=== PATIENT | male | born 1960 ===

== ENCOUNTER 2017-11-01 08:34 | Day surgery (SDC) | payer MEDICAID, OTHER ==
[2017-10-24 08:42] VITALS: BMI 26.4
[2017-11-01] MEDS ORDERED: Lidocaine 1% Inj (20ml) ONE (10:54)
[2017-11-01] MEDS ORDERED: Propofol 10 mg/ml Inj (20 ML) ONE (10:54)
[2017-11-01] MEDS ORDERED: cefTRIAXone (Rocephin) 1 gm Inj ONE (11:12)
[2017-11-01] MEDS ORDERED: ePHEDrine 50 mg/ml Inj ONE (11:22)
[2017-11-01] MEDS ORDERED: HYDROmorphone 0.5 mg/0.5 ml ISec IVP PRN (12:03)
[2017-11-01] MEDS ORDERED: HYDROmorphone 0.5 mg/0.5 ml ISec ONE (13:25)
[2017-11-01] MEDS: ceFAZolin 1 gm in NS 1 GM/100 ML BAG IVPB SCH ×2 (15:35→21:49)
[2017-11-01] MEDS ORDERED: Pneumococcal 23-Valent Vaccine IM ONE (22:49)
[2017-11-02] MEDS: ceFAZolin 1 gm in NS 1 GM/100 ML BAG IVPB SCH ×2 (06:19→14:00)
[2017-11-02 08:12] VITALS: RESP 20; TEMP 98.7
[2017-11-02] MEDS ORDERED: cefTRIAXone 1 gm 1 GM/100 ML BAG IVPB STA (09:23)
[2017-11-02] MEDS ORDERED: OXYBUTYNIN CHLORIDE PO SCH (10:00)
[2017-11-02] MEDS ORDERED: OXYBUTYNIN CHLORIDE 15 MG PO SCH (10:00)
--- NOTE | 2017-11-02 17:37 | PCM.URO ---
Urology Progress Note - Objective Lab Studies: Reviewed (discharge henderson and discharge home) Intake & Output: Intake & Output 11/01/17 11/02/17 11/02/17 18:59 06:59 18:59 Intake Total 2500 1200 480 Output Total 5000 4500 Balance -2500 -3300 480 Weight 149 lb Intake: Oral 1200 480 Other 2500 Output: Urine 5000 4500 2-way Urethral 2500 4500 Other: Voiding Method 3-way Henderson with CBI # Bowel Movements 0 Vital Signs: Vital Signs - 24 hr 11/01/17 11/02/17 22:23 06:00 Temperature 97.9 F 98.7 F Pulse Rate 85 80 Respiratory 16 20 Rate Blood Pressure 146/80 104/68 O2 Sat by Pulse 100 Oximetry
[2017-11-02 18:31] VITALS: BP 101/73; PULSE 86; O2SAT 96
--- NOTE | 2017-11-12 21:24 | DS ---
HISTORY OF PRESENT ILLNESS: See history and physical, see operative note, and see postop note. Patient remained stable. . Patient discharged home in stable condition. Vital signs are within normal limits as listed in the chart. Patient will be discharged home with antibiotics, analgesics, and stool softeners. We discussed with the patient various options, doing well and stable. FINAL DIAGNOSES: . At this point, patient was discharged home in stable condition, having tolerated the procedure well. Ata Drake MD
--- NOTE | 2017-11-13 06:55 | OP ---
PROCEDURE DATE: 11/01/2017 UROLOGY OPERATIVE REPORT PREOPERATIVE DIAGNOSES: Voiding dysfunction, irritative and obstructive voiding complaints, urinary retention, and mixed neurogenic bladder. POSTOPERATIVE DIAGNOSES: Voiding dysfunction, irritative and obstructive voiding complaints, urinary retention, and mixed neurogenic bladder. PROCEDURE: Photovaporization of the prostate with GreenLight laser energy, transurethral resection of the prostate. SURGEON: . BLOOD LOSS: Less than 25 mL. COMPLICATIONS: There were no complications. INDICATIONS: See history and physical for further details. A very pleasant gentleman with voiding dysfunction here for the above procedure. Risks, benefits, and treatment alternatives, the benefits and risk were both discussed at great length. The risk of surgery not working, which would making things worse, the benefits are voiding with a better flow and less abdominal pain and less irritative obstructive stream, all discussed at length. The expectation of more fluid with ejaculation, although right now this is not so relevant for him. See the many progress notes in the office and some social history. UROLOGY OPERATING FINDINGS: Normal anterior urethra. No strictures. Verumontanum is visually occlusive . I should also mention that [place] anatomy is noted and a little disrupted from previous intervention. See previous progress notes. The ureteral orifice, the trilobar hypertrophy is noted. So, basically, the patient has trilobar hypertrophy, the visually occlusive prostate. No other lesions were noted and no termination of the procedure, . All anatomy is identified and well taken care. DESCRIPTION OF PROCEDURE: After obtaining informed consent, the patient was placed on the table. Routine monitors were placed. Time-out was called. Consent was obtained with translation. Patient was provided antibiotic prophylaxis. Time-out was called to confirm the patient. Patient is in lithotomy position. We have arranged for the [employer] to be here. Patient prepped in usual sterile fashion in lithotomy position. We introduced the scope with the visual obturator and we identified all landmarks. Next by the veru, we identified the ureteral orifice. We then identified trilobar hypertrophy. visually occlusive. change. There are no other abnormalities appreciated. No bladder lesions. obturator. We started at 80 watt of energy and worked our way up to 120 to 140. We through 5 and 7 and at the bladder neck and then we worked our way eventually to 7 to 11, 5 to 1. Then eventually, we did identifying all anatomy. Finally, worked our way gently towards the verumontanum. . We subsequently achieved hemostasis using coag as needed. At the termination, nicely open. We at the verumontanum. Multiple pictures were taken and saved and placed in the chart. irrigation. Made sure that everything was dry, no bleeding. We inserted the Bruner catheter via the urethra. There were no complications. We placed the catheter on traction. Overall, the patient tolerated the above without untoward effects. The patient tolerated we placed him on traction, we put a CBI. See the addendum to this note. Patient tolerated without complication. ADDENDUM: We are going to actually admit the patient and keep him on CBI to make sure there is no bleeding. and encourage the patient to stay in the hospital overnight while we monitor him closely after the procedure. Ata Drake MD
--- NOTE | 2017-11-13 09:07 | HP ---
DATE OF EXAM: 11/01/2017 Admission is for treatment of voiding dysfunction, neurogenic bladder and urinary retention. HISTORY OF PRESENT ILLNESS: Mr. Miles Griffith is very pleasant gentleman, he had multiple issues, had a stroke apparently. The patient is currently being admitted today to the Same Day Surgery Unit with a possible hospital 24 hours stay for an undergo a photovaporization GreenLight laser energy, TURP. PAST MEDICAL HISTORY AND SURGICAL HISTORY: Are as follows, he had underlying hypertension of an MT. MEDICATIONS: See the chart. ALLERGIES: . REVIEW OF SYSTEMS: Surgical history as noted. . PHYSICAL EXAMINATION: GENERAL: A well-nourished male in no apparent distress. VITAL SIGNS: Within normal limits and listed in the chart. LUNGS: Clear. HEART: S1, S2. ABDOMEN: Overall, soft. Nontender. GENITOURINARY: Normal phallus without discharge. No testicular masses. RECTAL: A 30 g prostate, soft and smooth. NEUROLOGICAL: As noted for stroke. LABORATORY DATA: See chart. IMAGING: See chart. DIAGNOSES: Urinary retention, voiding dysfunction, irritative and obstructive urinary complaints, problems with neurogenic bladder. We discussed other workup. We discussed minimally invasive treatment with . We tried to discuss all the treatment medications obstructed. history of stroke bladder contraction incontinence. We did discuss this with the patient at length. obstructive in nature. PLAN: So the plan for today is as follows: 1. PVP GreenLight laser . 2. We are going to plan antibiotic prophylaxis. 3. We will now plan for PVP GreenLight laser, TURP and further plans will follow depending on how the patient does clinically. hospital depending on the situation. addendum, see the operative note he ended up needing 1. 24 hours today in the hospital 2. We are going to plan for a PVP GreenLight laser TURP. 3. We are going to plan for antibiotic prophylaxis. 4. Further plan will follow. Ata Drake MD [facility] # [id number]
--- NOTE | 2017-11-13 09:21 | PN ---
DATE: 11/01/2017 IMMEDIATE POSTOPERATIVE NOTE PREOPERATIVE DIAGNOSES: Urinary retention, hematuria, irritative and obstructive urinary complaints and urinary retention. POSTOPERATIVE DIAGNOSES: Urinary retention, hematuria, and irritative and obstructive urinary complaints and urinary retention. . Vital signs are noted to be within normal limits. Bruner catheter is in place, draining essentially clear urine. See the progress notes and the operative notes. There were no complications. Vital signs are stable. When examining the patient, although the patient has an indwelling Bruner catheter, we are going to actually admit the patient and observe him for a length of time, keep him on CBI and further observation and do a 24-hour stay. Ata Drake MD
== END 2017-11-02 18:35 | disposition home or self-care (01) ==
LOC: SDS 08:34 → 5RNO 14:13 → SDS 11-02 14:40
PROVIDERS: ATTEND Urology
DX: N40.1 Benign prostatic hyperplasia with lower urinary tract symptoms (principal); R33.8 Other retention of urine; N31.8 Other neuromuscular dysfunction of bladder
CPT/HCPCS: 52648; J0690 ×2; J0696; J1170; J2405; J2704; J2765; J3010; J7120

== ENCOUNTER 2017-11-27 07:38 | Observation (INO) | payer MEDICAID, OTHER ==
[2017-11-27 07:43] VITALS: BMI 24.2
--- NOTE | 2017-11-27 07:47 | ED PDOC ---
Arrival/HPI - General Chief Complaint: Weakness/Neurological Deficit Time Seen by Provider: 11/27/17 07:40 Historian: Patient - History of Present Illness Narrative History of Present Illness (Text): 11/27/17 07:54 Patient is a 57 yo male, past medical history of stroke "5 years ago" with history of left sided deficits, presents to the Emergency Department from a [facility] bus with history of "feeling dizzy before I got on the bus" and "feeling some discomfort in my left arm it feels a little different". States symptoms started before he got on the bus. Denies headache. Denies chest pain or shortness of breath. Patient becomes tearful and states he has been having difficulty with family members over the past several days. Time/Duration: Prior to Arrival Symptom Onset: Sudden Past Medical History - Provider Review Nursing Documentation Reviewed: Yes - Infectious Disease Hx of Infectious Diseases: None - Tetanus Immunization Tetanus Immunization: Up to Date - Cardiac Hx Cardiac Disorders: Yes Hx Hypertension: Yes Hx Pacemaker: No - Pulmonary Hx Respiratory Disorders: Yes (USED TO SMOKE CIGARETTES QUIT) Hx Pneumonia: Yes - Neurological Hx Neurological Disorder: Yes (NEUROPATHY) HX Cerebrovascular Accident: Yes (left sided WEAKNESS) Hx Dizziness: Yes (DIZZINESS) Hx Seizures: Yes - HEENT Hx HEENT Disorder: No - Renal Hx Renal Disorder: Yes Hx Kidney Stones: Yes (X2) - Endocrine/Metabolic Hx Endocrine Disorders: No - Hematological/Oncological Hx Blood Disorders: No - Integumentary Hx Dermatological Disorder: No - Musculoskeletal/Rheumatological Hx Musculoskeletal Disorders: Yes Hx Falls: Yes Hx Unsteady Gait: Yes (CANE) - Gastrointestinal Hx Gastrointestinal Disorders: Yes (PEG IN/OUT) - Genitourinary/Gynecological Hx Genitourinary Disorders: Yes (URINARY FREQUENCY,RETENTION) Hx Prostate Problems: Yes (BPH) - Psychiatric Hx Emotional Abuse: No Hx Physical Abuse: No Hx Substance Use: No - Anesthesia Hx Anesthesia Reactions: No Hx Malignant Hyperthermia: No - Suicidal Assessment Feels Threatened In Home Enviroment: No Family/Social History - Physician Review Nursing Documentation Reviewed: Yes Family/Social History: Unknown Family HX Smoking Status: Former Smoker Hx Alcohol Use: Yes (H/O QUIT) Hx Substance Use: No Hx Substance Use Treatment: No Allergies/Home Meds Allergies/Adverse Reactions: Allergies No Known Allergies Allergy (Verified 11/01/17 20:22) Home Medications: Home Meds Medication Instructions Recorded Confirmed Aspirin [Ecotrin] 81 mg PO DAILY 10/24/17 10/24/17 Atorvastatin [Lipitor] 10 mg PO HS 10/24/17 10/24/17 Baclofen [Lioresal] 10 mg PO TID 10/24/17 10/24/17 Gabapentin [Neurontin] 100 mg PO HS 10/24/17 10/24/17 Levetiracetam [Roweepra] 500 mg PO BID 10/24/17 10/24/17 Losartan [Cozaar] 100 mg PO HS 10/24/17 10/24/17 Oxybutynin Chloride [Oxybutynin 15 mg PO DAILY 10/24/17 10/24/17 Chloride ER] Oxybutynin [Oxybutynin Chloride] 5 mg PO BID 10/24/17 10/24/17 PARoxetine [Paxil] 10 mg PO HS 10/24/17 10/24/17 Ranitidine HCl [Sunmark Acid 150 mg PO DAILY 10/24/17 10/24/17 Collet Driller] Tamsulosin [Flomax] 0.4 mg PO DAILY 10/24/17 10/24/17 Review of Systems - Review of Systems Systems not reviewed;Unavailable: Language Barrier (marine erector is present at bedside) Constitutional: absent: Fevers Eyes: absent: Vision Changes Respiratory: absent: SOB Cardiovascular: absent: Chest Pain, GOMEZ Gastrointestinal: absent: Abdominal Pain, Nausea Genitourinary Male: absent: Dysuria Musculoskeletal: absent: Back Pain Skin: absent: Rash Neurological: Dizziness, Focal Weakness (he has left sided arm and leg weakness but states he always has this). absent: Headache, Seizure Psychiatric: Anxiety, Depression Physical Exam - Physical Exam Narrative Physical Exam (Text): 11/27/17 Head: Atraumatic. Normocephalic. Eyes: PERRL. EOMI. Visual acuity and sesay at baseline. ENT: Mucous membranes are moist and intact. Oropharynx is clear and symmetric. No tongue deviation. No facial edema. Neck: Supple. Full ROM. No JVD. No lymphadenopathy. No meningeal signs. Cardiovascular: Regular rate. Regular rhythm. Systolic murmur noted. Pulmonary/Chest: No evidence of respiratory distress. Clear to auscultation bilaterally. No wheezing, rales or rhonchi. Abdominal: Soft and non-distended. There is no tenderness. No rebound, guarding, or rigidity. No organomegaly. Good bowel sounds. Back: No deformities. Nontender. Extremities: No edema. No cyanosis. No clubbing. Contracted left upper extremity. Skin: Skin is warm and dry. No petechiae. No purpura. Neurological: Alert, awake, and oriented to person, place, time, and situation. Left sided facial droop, patient states at baseline. Left upper and lower extremity weakness, patient states currently at baseline. Psychiatric: Tearful. Expresses depression and anxiety. Vital Signs Reviewed: Yes Vital Signs Temp Pulse Resp BP Pulse Ox 11/27/17 08:00 97.5 F L 77 18 139/92 H 97 Temperature: Afebrile Blood Pressure: Hypertensive Pulse: Regular Respiratory Rate: Normal Appearance: Positive for: Non-Toxic Pain Distress: None Mental Status: Positive for: Alert and Oriented X 3 Finger Stick Blood Glucose: 100 Medical Decision Making ED Course and Treatment: 11/27/17 Impression: Patient seen immediately upon arrival to [facility]. History obtained from patient via technical marketing consultant. He reports history of previous stroke 5 years ago. On exam he has left sided facial droop and left sided upper and lower extremity weakness. He felt that 13 minutes ago approximately it felt "different " although on initial exam he states weakness is now at his baseline. CODE stroke activated for potential acute onset of symptoms. Reviewed neurology consult from June, which documented prior weakness as well. On re-exam, he is comfortable and at baseline. Based on this history and exam, currently do not feel patient is a TPA candidate as symptoms likely baseline. Initial history and exam reviewed with neurologist Dr. Aguilar. Patient exhibits depression over family and is intermittently tearful. Differential Diagnosis included but are not limited to: acute stroke, residual stroke, depression, anxiety Plan: -- EKG -- CT head -- CXR -- Labs -- Reassess and disposition Prior Visits: Notes and results from previous visits were reviewed. Patient was last seen in the emergency department on Progress Notes: 11/27/17 08:[address]: Impression: No acute finding. 11/27/17 09:49 Patient on re-exam with no change from initial exam, and remains at his baseline status neurologically. By patient's request I communicated with his daughter via phone, who also states his weakness has been there previously. I communicated with his PMD DR. Mateo Chaves, who knows patient, and has examined patient in ED, also feels currently patient is at his baseline, thus NOT a tpa candidate. Will admit to telemetry observation for history of weakness, history of cva. - Lab Interpretations Lab Results: 11/27/17 07:47 11/27/17 07:47 Lab Results 11/27/17 08:00: Alcohol, Quantitative < 10 11/27/17 08:00: Salicylates < 1 L, Acetaminophen < 10.0 L 11/27/17 07:47: Blood Type O POSITIVE, Antibody Screen Negative, BBK History Checked No verified bt 11/27/17 07:47: Sodium 141, Potassium 3.9, Chloride 103, Carbon Dioxide 25, Anion Gap 17, BUN 18, Creatinine 0.9, Est GFR ( Amer) > 60, Est GFR (Non- Af Amer) > 60, Random Glucose 105, Calcium 8.9, Total Bilirubin 0.5, AST 50, ALT 87 H, Alkaline Phosphatase 115, Troponin I < 0.01 D, Total Protein 7.9, Albumin 4.3, Globulin 3.5, Albumin/Globulin Ratio 1.2, Triglycerides 83, Cholesterol 116 L, LDL Cholesterol Direct 45, HDL Cholesterol 51 11/27/17 07:47: PT 11.7, INR 1.02, APTT 30.4 11/27/17 07:47: WBC 8.7 D, RBC 4.82, Hgb 15.4, Hct 44.9, MCV 93.2, MCH 32.0, MCHC 34.3, RDW 12.9, Plt Count 232, MPV 10.4, Gran % 66.8, Lymph % (Auto) 24.8, Towns % (Auto) 4.5, Eos % (Auto) 3.7, Baso % (Auto) 0.2, Gran # 5.80, Lymph # ( Auto) 2.2, Towns # (Auto) 0.4, Eos # (Auto) 0.3, Baso # (Auto) 0.02 I have reviewed the lab results: Yes - RAD Interpretation Radiology Orders: 11/27/17 07:44 HEAD W/O (CODE STROKE) [CT] Stat CHEST PORTABLE [RAD] Stat Foreign Correspondent: Radiologist - EKG Interpretation EKG Interpretation (Text): 11/27/17 08:11 EKG at 0802 normal sinus rhythm rate of [address] elevations Interpreted by ED Physician: Yes Type: 12 lead EKG - Medication Orders Current Medication Orders: Aspirin (Ecotrin) 81 mg PO DAILY OZZIE Atorvastatin Calcium (Lipitor) 10 mg PO HS OZZIE Baclofen (Lioresal) 10 mg PO TID OZZIE Famotidine (Pepcid) 150 mg PO BID OZZIE Gabapentin (Neurontin) 100 mg PO HS OZZIE PRN Reason: Protocol Levetiracetam (Keppra) 500 mg PO BID OZZIE Losartan Potassium (Cozaar) 100 mg PO HS OZZIE Oxybutynin Chloride (Ditropan Tab) 5 mg PO BID OZZIE Paroxetine HCl (Paxil) 10 mg PO HS OZZIE Tamsulosin HCl (Flomax) 0.4 mg PO DAILY OZZIE Discontinued Medications Aspirin (Aspirin Chewable) 81 mg PO STAT STA Stop: 11/27/17 08:49 Last Admin: 11/27/17 09:09 Dose: 81 mg NIHSS Scale ([place]) Time Performed: 07:50 - How Severe is the Stoke Baseline Level of Consciousness: 0=Alert LOC to Questions: 0=Both comments correct LOC to commands: 0=Obeys both correctly Best Gaze: 0=Normal Visual: 0=No visual loss Facial: 2=Partial (lower face paralysis) Motor Arm - Left: 2=Falls before 10 sec Motor Arm - Right: 0=No drift Motor Leg - Left: 2=Falls before 5 sec Motor Leg - Right: 0=No drift Limb Ataxia: 0=Absent Sensory: 0=Normal Best Language: 0=No aphasia Dysarthia: 0=Normal articulation Extinction & Inattention (Neglect): 0=Normal, no object Score: 6 Risk Level: Mod Stroke Risk rTPA Inclusion/Exclusion - Refusal of Treatment Patient Refused Treatment: Yes - Warning to TPA With Conditions Following Conditions Weighed Against Anticipated Benefit: Yes Condition: Stroke Serevity Too Mild (patient's symptoms of weakness ARE AT HIS BASELINE CURRENLTY) - Scribe Statement The provider has reviewed the documentation as recorded by the Scribe Dianelys Cárdenas Provider Scribe Attestation: All medical record entries made by the Scribe were at my direction and personally dictated by me. I have reviewed the chart and agree that the record accurately reflects my personal performance of the history, physical exam, medical decision making, and the department course for this patient. I have also personally directed, reviewed, and agree with the discharge instructions and disposition. Disposition/Present on Arrival - Present on Arrival Any Indicators Present on Arrival: No History of DVT/PE: No History of Uncontrolled Diabetes: No Urinary Catheter: No History of Decub. Ulcer: No History Surgical Site Infection Following: None - Disposition Have Diagnosis and Disposition been Completed?: Yes Diagnosis: Dizziness, CVA (cerebral vascular accident) Disposition: HOSPITALIZED Disposition Time: 09:00 Patient Plan: Admission, Observation, Telemetry Condition: FAIR
[2017-11-27 08:03] LABS: BASO # 0.02 K/mm3 (0.0-2.0); BASO % 0.2 % (0.0-3.0); EOS # 0.3 (0.0-0.7); EOS % 3.7 % (1.5-5.0); GRAN # 5.8 (1.4-6.5); GRAN % 66.8 % (50.0-68.0); HEMOGLOBIN 15.4 g/dL (14.0-18.0); LYMPH # 2.2 (1.2-3.4); LYMPH % 24.8 % (22.0-35.0); MEAN CELL VOLUME 93.2 fl (80.0-105.0); MEAN CORPUSCULAR HGB CONC 34.3 g/dl (31.0-37.0); MEAN PLATELET VOLUME 10.4 fl (7.0-11.0); MONO # 0.4 (0.1-0.6); MONO % 4.5 % (1.0-6.0); RBC 4.82 10^6/uL (3.5-6.1); RED CELL DISTRIBUTION WIDTH 12.9 % (11.5-14.5); WHITE BLOOD COUNT 8.7 10^3/ul (4.5-11.0)
[2017-11-27 08:16] LABS: INR 1.02 (0.93-1.08); PARTIAL THROMBOPLASTIN TIME 30.4 Seconds (25.1-36.5); PROTHROMBIN TIME 11.7 SECONDS (9.4-12.5)
--- NOTE | 2017-11-27 08:18 | CT ---
PROCEDURE: CT HEAD WITHOUT CONTRAST. HISTORY: Code Stroke COMPARISON: 07/24/2016 TECHNIQUE: Axial computed tomography images were obtained through the head/brain without intravenous contrast. Radiation dose: Total exam DLP = 882 mGy-cm. This CT exam was performed using one or more of the following dose reduction techniques: Automated exposure control, adjustment of the mA and/or kV according to patient size, and/or use of iterative reconstruction technique. FINDINGS: HEMORRHAGE: No intracranial hemorrhage. BRAIN: There is a large area of cystic encephalomalacia in the right frontal and temporal lobe as well as the basal ganglia. There are no acute intracranial findings. VENTRICLES: Unremarkable. No hydrocephalus. CALVARIUM: Unremarkable. PARANASAL SINUSES: Unremarkable as visualized. No significant inflammatory changes. MASTOID AIR CELLS: Unremarkable as visualized. No inflammatory changes. OTHER FINDINGS: The findings were discussed with Dr. Alvarenga at 8:15 a.m. IMPRESSION: No acute findings
[2017-11-27 08:20] LABS: ALB/GLOB RATIO 1.2 (1.1-1.8); ALBUMIN 4.3 g/dL (3.0-4.8); ALT/SGPT 87 U/L (7-56); AST/SGOT 50 U/L (17-59); BLOOD UREA NITROGEN 18 mg/dL (7-21); CALCIUM 8.9 mg/dL (8.4-10.5); GFR AFRICAN-AMERICAN > 60; GFR NON-AFRICAN AMERICAN > 60; HDL CHOLESTEROL 51 mg/dL (29-60)
[2017-11-27 08:22] LABS: ACETAMINOPHEN < 10.0 ug/ml (10.0-20.0); SALICYLATE < 1 mg/dL (2.0-20.0)
[2017-11-27 08:31] LABS: TROPONIN I < 0.01 ng/mL
[2017-11-27 08:32] LABS: LDL CHOLESTEROL 45 mg/dL (0-129)
[2017-11-27 09:36] LABS: BARBITURATES, UR NEGATIVE (NEGATIVE); BENZODIAZEPINES, UR NEGATIVE (NEGATIVE); OPIATES, UR NEGATIVE (NEGATIVE); PHENCYCLIDINE, UR NEGATIVE (NEGATIVE)
--- NOTE | 2017-11-27 09:44 | RAD ---
HISTORY: Code Stroke COMPARISON: 10/24/2017 FINDINGS: LUNGS: No active pulmonary disease. PLEURA: No significant pleural effusion identified, no pneumothorax apparent. CARDIOVASCULAR: Normal. OSSEOUS STRUCTURES: No significant abnormalities. VISUALIZED UPPER ABDOMEN: Normal. OTHER FINDINGS: None. IMPRESSION: No active disease.
--- NOTE | 2017-11-27 13:56 | CARD ---
APPROVED REPORT EKG Measurement Heart [id number] <Conclusion> Normal sinus rhythm Normal ECG
[2017-11-27] MEDS ORDERED: Pneumococcal 23-Valent Vaccine IM ONE (14:25)
--- NOTE | 2017-11-27 15:13 | CT ---
PROCEDURE: CT Angiography of the neck with contrast HISTORY: CVA COMPARISON: None available. TECHNIQUE: Contiguous axial images of the neck were obtained from the level of the skull-base to the superior mediastinum in the arteriographic phase of enhancement. Coronal and sagittal reformats or also generated. IV contrast dose: 100 cc of Omni 350 Radiation Dose - DLP: 446 mGy-cm This CT exam was performed using one or more of the following dose reduction techniques: Automated exposure control, adjustment of the mA and/or kV according to patient size, and/or use of iterative reconstruction technique. FINDINGS: RIGHT CAROTID ARTERIES: Common Carotid Artery: Normal. Carotid Bifurcation: Normal. Internal Carotid Artery:Normal. External Carotid Artery (proximal branches): Normal. LEFT CAROTID ARTERIES: Common Carotid Artery: Normal. Carotid Bifurcation: Normal. Internal Carotid Artery:Normal. External Carotid Artery (proximal branches): Normal. VERTEBRAL ARTERIES: Right Vertebral Artery: Normal. Left Vertebral Artery: Normal. OTHER FINDINGS: None. IMPRESSION: Normal CT Angiography of the neck. CT Angiography of the Brain. HISTORY: CVA COMPARISON: None available. TECHNIQUE: CT angiography of the intracranial arteries was performed. Coronal and sagittal maximum intensity projection reformated images were generated. This CT exam was performed using one or more of the following dose reduction techniques: Automated exposure control, adjustment of the mA and/or kV according to patient size, and/or use of iterative reconstruction technique. FINDINGS: INTERNAL CEREBRAL ARTERIES: Unremarkable. The skull base, petrous, cavernous and supraclinoid segments are bilaterally widely patent. ANTERIOR CEREBRAL ARTERIES: Unremarkable. A1 and A2 segments are widely patent. Smaller distal branches unremarkable, as visualized. MIDDLE CEREBRAL ARTERIES: Unremarkable. M1 and M2 segments are widely patent. Perisylvian branches grossly symmetric. POSTERIOR CIRCULATION: Basilar Artery: Unremarkable. Distal Vertebral Arteries: Unremarkable. Posterior Cerebral Arteries: Unremarkable. Posterior Inferior Cerebellar Arteries: Unremarkable. ANEURYSM/ VASCULAR MALFORMATIONS: None. OTHER FINDINGS: There is a large area of encephalomalacia in the right hemisphere as noted on previous studies. IMPRESSION: Unremarkable CT Angiography of the Brain.
--- NOTE | 2017-11-27 17:22 | MRI ---
PROCEDURE: MRI BRAIN WITHOUT CONTRAST HISTORY: CVA COMPARISON: Noncontrast head CT from 11/27/2017 TECHNIQUE: Multiplanar, multisequence MR images of the brain were obtained without intravenous contrast enhancement. FINDINGS: HEMORRHAGE: None DWI: No evidence of an acute or early subacute infarction. BRAIN PARENCHYMA: There is cystic encephalomalacia and gliosis in the right temporal and frontal lobes as well as right basal ganglia with volume loss and ex vacuo dilatation of the right ventricle as well as well layering degeneration of the pyramidal tract. VENTRICLES: There is mild age advanced global parenchymal volume loss and proportionate enlargement of the ventricles and cortical sulci. CRANIUM: There is normal bone marrow signal pattern. ORBITS: Grossly unremarkable. PARANASAL SINUSES/MASTOIDS: Predominantly clear P VASCULAR SYSTEM: There is asymmetric narrowing of the right middle cerebral artery. There are normal signal voids in the remaining larger intracranial arteries. OTHER FINDINGS: None. IMPRESSION: 1. No acute intracranial abnormality. 2. Right frontal and temporal lobe as well as basal ganglia cystic encephalomalacia and gliosis, sequela of remote MCA territory infarction.
--- NOTE | 2017-11-27 18:25 | CON ---
DATE: 11/27/2017 NEUROLOGY CONSULTATION CHIEF COMPLAINT: Dizziness and worsening left-sided weakness. 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 b.i.d.; history of depression, on Paxil who presented with feeling dizzy in terms of lightheaded when getting on to the bus and had some mild discomfort in his spastic left arm and felt a little numb; therefore, he came to the hospital for further evaluation. His MRI of the brain showed no acute intracranial abnormality, just old cystic encephalomalacia in the right MCA territory, especially in the frontal and temporal lobe. No acute abnormalities. CT angio of the head and neck unremarkable for any proximal clots. Currently, he is doing much better. He had mildly elevated diastolic blood pressure, which is transient, currently is stable, doing well. PAST MEDICAL HISTORY: As above. SOCIAL HISTORY: No illicit drug use, smoking, or EtOH abuse. FAMILY HISTORY: Noncontributory. MEDICATIONS: Reviewed by nurses' reconciliation sheet. ALLERGIES: NO KNOWN DRUG ALLERGIES. LABORATORY DATA: Sodium is 141, potassium 3.9, chloride of 103, carbon dioxide of 25, BUN of 18, creatinine 0.9, random glucose of 105. A1c is 5.5. PHYSICAL EXAMINATION: VITAL SIGNS: Temperature 97.5, pulse rate of 68, blood pressure of 130/89, respiratory rate 19. GENERAL: The patient is sitting up in bed, in no acute distress. HEENT: Head is atraumatic and normocephalic. PERRLA. Extraocular muscles intact. NECK: Supple. No JVD. No adenopathy noted. LUNGS: Clear to auscultation. No adventitious sounds. HEART: S1, S2. Normal rate and rhythm. No murmurs, rubs, or gallops. ABDOMEN: Soft, nontender, and nondistended. Bowel sounds present. EXTREMITIES: No clubbing. No cyanosis. Peripheral pulses 2+ felt bilaterally. NEUROLOGIC: The patient is alert and oriented to person, place, month, and year. Speech is fluent without any errors. Mild dysarthria from prior CVA. Attention span, thought process slow. Cranial nerves II through XII are intact. Motor: Has left-sided spastic upper and lower extremity weakness from prior CVA and contracted left upper extremity. Right side is intact. Sensory: Light touch, pinprick, proprioception, and vibration are intact. DTRs are 2+ throughout, 1 at the ankles. Coordination: [id number]-st-[id number] intact. Gait is slightly wide based and with left hemiparetic gait, spastic in nature. ASSESSMENT: This is a 57-year-old man with history of hypertension, dyslipidemia, history of right middle cerebral artery territory infarct with residual left-sided spastic weakness with a left-sided spastic hemiparetic gait, neuropathy, poor balance, seizures from right middle cerebral artery territory infarct, on Keppra, had some dizziness and some left arm numbness. His dizziness could be likely secondary to underlying transient hypertensive urgency since he had elevated diastolic blood pressures and postural changes. RECOMMENDATIONS: At this time, would recommend, 1. Orthostatic vital signs. 2. MRI of the brain and CT angio of the head was reviewed and no acute abnormalities. 3. Continue with aspirin 81 mg and Lipitor 20 mg at bedtime for neuropathic relief. 4. Continue with Keppra 500 mg p.o. b.i.d. for seizure prophylaxis. 5. Slow reduction in diet and keep his systolic blood pressure between 130s to 140s and diastolic 70s to 80s. 6. Continue with his Paxil 10 mg p.o. at bedtime for his depression and can follow up with me as an outpatient. He is clinically stable. Jose Manuel Randhawa MD
--- NOTE | 2017-11-27 20:12 | HP ---
DATE OF EXAM: 11/27/2017 HISTORY OF PRESENT ILLNESS: I have known Miles for a while now. I have seen him in the office. He has a history of having a stroke five years ago. He is a 57-year-old man who felt he had left-sided deficits that were getting worse, feeling dizzy, and a weird feeling in the left arm. He felt different when he was on a bus. He also has some issues with family members and he is tearful today and he is not in good spirits overall, may be a little depressed. He has a history of hypertension, an old stroke with left-sided weakness, neuropathy, dizziness, seizures. He has had kidney stones. He has had falls and he uses a cane. He had a PEG that was placed and reversed. He had urinary frequency and retention. He has got BPH, hypertension in the family. He is a former smoker. He quit drinking alcohol. No drugs. ALLERGIES: NO KNOWN DRUG ALLERGIES. MEDICATIONS: He is on Ecotrin, Lipitor, Lioresal, Neurontin, 01:08, 01:45, 03:04, 03:20 , Cozaar, oxybutynin, Paxil, ranitidine, and Flomax. REVIEW OF SYSTEMS: He speaks Cameroonian, but he speaks also Romanian too. No acute vision or hearing changes. No apparent sore throat. He is tearful. No shortness of breath or cough. No chest pain or palpations. No dyspnea on exertion. No abdominal pain. No nausea, vomiting, constipation, diarrhea. No problems urinating. No back pain. No apparent rashes or ulcers. He is a little bit dizzy. Left arm felt numb with focal weakness, but he has had, not sure if it is new or worsening. To me, it looks the same. No headache or seizure. He is anxious, depressed, and tearful. PHYSICAL EXAMINATION: VITAL SIGNS: He has a 97.5 temperature, 77 pulse, 18 respiratory rate, 139/92 blood pressure, and 97% O2 sat on room air. HEENT: Head is atraumatic and normocephalic. Extraocular muscles are intact. Pupils are equal and reactive to light. Throat is moist. NECK: Supple. No lymphadenopathy appreciated. HEART: Regular rate. LUNGS: Decreased breath sounds, but clear to auscultation. ABDOMEN: Soft, nontender, positive bowel sounds. No guarding. No rebound. No CVA tenderness. EXTREMITIES: He has got no edema. The left upper extremity is contracted. He has got left-sided weakness secondary to the stroke. SKIN: Warm and dry. No apparent ulcers or rashes. NEUROLOGIC: He is alert and oriented. He is tearful. He has a situation with his family, he did not explain. Depression and anxiety. LABORATORY DATA: So, we had some tests done in the ER. CAT scan of the head was okay. He has 8.7 white count, 15.4 hemoglobin, 44.9 hematocrit, and 232 platelets. INR is 1.02. Sodium is 141, potassium is 3.9, BUN 18, creatinine 0.9, GFR is greater than 60, sugar is 105, calcium is 8.9. Total bilirubin is 0.5, AST is 50, ALT is 87, alkaline phosphatase 115. Troponin I is less than 0.01. Total protein is 7.9, albumin is 4.3, and globulin 3.5. Triglycerides 83, cholesterol is 116, LDL is 45, HDL is 61. He has Tylenol less than 10, alcohol less than 10. ASSESSMENT AND PLAN: Overall, he seems stable. He will be on observation. He will have a consult with Neurology, Psychiatry for care. We will watch him overnight, put him on his medications, and check his labs. He is on observation status. He is here for left-sided weakness, rule out cerebrovascular accident. CAT scan was negative. Donnie Chaves DO MTDD
[2017-11-28 06:25] VITALS: O2SAT 97
[2017-11-28 06:34] LABS: HEMOGLOBIN 14.4 g/dL (14.0-18.0); MEAN CELL VOLUME 91.5 fl (80.0-105.0); MEAN CORPUSCULAR HEMOGLOBIN 31.2 pg (25.0-35.0); MEAN CORPUSCULAR HGB CONC 34.1 g/dl (31.0-37.0); MEAN PLATELET VOLUME 10.5 fl (7.0-11.0); RBC 4.61 10^6/uL (3.5-6.1); RED CELL DISTRIBUTION WIDTH 12.7 % (11.5-14.5); WHITE BLOOD COUNT 6.6 10^3/ul (4.5-11.0)
[2017-11-28 06:39] LABS: ALB/GLOB RATIO 1.1 (1.1-1.8); ALBUMIN 3.7 g/dL (3.0-4.8); ALT/SGPT 73 U/L (7-56); AST/SGOT 36 U/L (17-59); BLOOD UREA NITROGEN 13 mg/dL (7-21); CALCIUM 8.7 mg/dL (8.4-10.5); GFR AFRICAN-AMERICAN > 60; GFR NON-AFRICAN AMERICAN > 60
[2017-11-28] MEDS ORDERED: Potassium Chloride 20 mEq ER Tab PO ONE (07:37)
[2017-11-28 18:21] VITALS: BP 120/85; PULSE 81; RESP 17; TEMP 98.5
--- NOTE | 2017-11-29 02:21 | CON ---
DATE: 11/28/2017 HISTORY OF PRESENT ILLNESS: The patient is a 57-year-old male with a history of stroke. The patient was admitted on the medical side for evaluation of feeling of dizziness. The patient presented to be depressed and hopeless, and that is why this leader writer was involved into the patient care. As per the patient, he feels lonely because his left him. Also, his daughter is joining [employer]. The patient said that he came to the [place] to be with the family. Right now he lost everything. He cannot function; feeling hopeless, helpless. At times he has suicidal ideation; no plan. The patient reported that he has poor appetite and sleep. He feels hopeless, helpless, worthless and guilty. As per staff, the patient is very tearful, anxious, needs constant reassurance. The patient denied any psychotic symptoms and none were elicited. The patient reported that he was seen by psychiatrist, Dr. Palomino at [facility], and he is taking Paxil. The patient also is attending day treatment program. The patient's vital signs seems to be stable. Temperature 98.4, pulse is 106, blood pressure 112/76, respirations 21. The patient has a lot of medical issues, status post stroke with left-sided deficit. Medications reviewed. Patient is willing to change his Paxil to amitriptyline because this is a good medication for depression secondary to stroke. Risks, benefits and alternatives discussed with the patient. Labs reviewed. Urine drug screen negative for any substances. MENTAL STATUS EXAM: The patient presented to be alert, tearful, and depressed. The patient reported that he feels hopeless and helpless. Poor eye contact. Speech was underproductive. Thought process coherent and goal directed. Thought content; passive wish to be , feeling of hopelessness and helplessness. Insight and judgment seems to be limited. Impulses are well-controlled. IMPRESSION: Rule out major depressive disorder, rule out depression due to general medical condition. The patient has had stroke. PLAN: Continue current management. Continue current medications. Amitriptyline will be started. The patient will be continued on Keppra, Neurontin. Paxil will be discontinued. The patient will be seen by medical team. The patient is willing to sign in, and will be admitted voluntary to the psychiatric inpatient unit. Thank you very much for letting me participate in care of your patient. Selma Delgado MD
--- NOTE | 2017-11-29 08:08 | DS ---
HISTORY OF PRESENT ILLNESS: He came in with possible left CVA and very very depressed. He is doing fine this morning. He tells me he is back to his old self, the feelings have left him, and he wants to go to the psych floor to get better with his depression. He is on aspirin, Cozaar, Ditropan, Ecotrin, Flomax, potassium replacement, Keppra, baclofen, Lipitor, Neurontin, Paxil. He might need a higher dose or change as per [facility]. PHYSICAL EXAMINATION: VITAL SIGNS: His vital signs are 98.1 temperature, 88 pulse, 116/85 blood pressure, 20 respiratory rate, 97% O2 sat on room air. HEENT: Head is atraumatic, normocephalic. Heart regular rate. LUNGS: Decreased breath sounds, but clear. ABDOMEN: Soft. EXTREMITIES: No weakness in the left side secondary to an old stroke. LABORATORY DATA: He has a 6.6 white count, 14.4 hemoglobin, 42.2 hematocrit with a 224 platelets. He has a 140 sodium, potassium 3.5, I gave him potassium this morning. BUN 13, creatinine 0.8, GFR greater than 60, sugar is 95, calcium is 8.7, total bili is 0.6. AST is 36, ALT is 73, alk phos 97. Troponin I is less than 0.01, total protein 7.1, albumin is 3.7. Toxicology was negative. ASSESSMENT AND PLAN: He is a very nice man. He is very depressed. He is having issues at home. He had multiple tests of the brain and neck, and Neurology ruled that out. I am hoping he will be transferred to today. He told me he is willing to go. I left a message with the psychiatrist on-call to psych floor. The patient is very depressed. Donnie Chaves DO
== END 2017-11-28 19:01 ==
LOC: ED 07:38 → ERH 08:49 → 2RNO 10:14
PROVIDERS: ADMIT Family Medicine; ATTEND Family Medicine
DX: I16.0 Hypertensive urgency (principal); R42 Dizziness and giddiness; F32.9 Major depressive disorder, single episode, unspecified; I10 Essential (primary) hypertension; I69.354 Hemiplegia and hemiparesis following cerebral infarction affecting left non-dominant side; R56.9 Unspecified convulsions; E78.5 Hyperlipidemia, unspecified; G62.9 Polyneuropathy, unspecified; N40.1 Benign prostatic hyperplasia with lower urinary tract symptoms; R35.0 Frequency of micturition; R33.8 Other retention of urine; Z87.891 Personal history of nicotine dependence; Z79.82 Long term (current) use of aspirin; Z87.01 Personal history of pneumonia (recurrent); Z82.49 Family history of ischemic heart disease and other diseases of the circulatory system; Z87.442 Personal history of urinary calculi
CPT/HCPCS: 36415; 70450; 70496; 70498; 70551; 71045; 80053; 80061; 80320; 80324; 80329; 80345; 80346; 80349; 80353; 80358; 80361; 83036; 83992; 84484; 85025; 85027; 85610; 85730; 86850; 86900; 93005; 97116; 97161; 97530; 99285; G0378; G8978; G8979; G8980; Q9967

== ENCOUNTER 2017-11-28 18:53 | Inpatient (IN) | payer MEDICAID, OTHER ==
[2017-11-27 07:43] VITALS: BMI 24.2
[2017-11-28] MEDS ORDERED: Alum-Mag Hydrox-Simethicone Susp (30 mL) PO PRN (20:26)
[2017-11-28] MEDS ORDERED: Magnesium Hydroxide Susp 30 ml UD PO PRN (20:26)
[2017-11-28 20:35] VITALS: RESP 20
--- NOTE | 2017-11-28 23:43 | PCM.BM ---
<Monica Diaz - Last Filed: 11/28/17 23:40> Treatment Plan Problems - Problems identified on initial assessmt INEFFECTIVE COPING Date Initiated: 11/28/17 Time Initiated: 20:00 Assessment reference: NA Status: Active Priority: 1 HOPELESSNESS/HELPLESSNESS Date Initiated: 11/28/17 Time Initiated: 20:00 Assessment reference: NA Status: Active Priority: 2 SOCIAL ISOLATION Date Initiated: 11/28/17 Time Initiated: 20:00 Assessment reference: NA Status: Active Priority: 3 Treatment assets and liabiliti Patient Assests: cooperative, motivated, self-reliant, negotiates basic needs, cognitively intact Patient Liabilities: live alone, financial problems, poor support system, relationship conflicts, medical problems - Milieu Protocol Maintain good personal hygiene: every other day Encourage regular showers, every shift Remind patient to perform daily oral care, every shift Assist patient to perform ADL's Maintain personal safety: every shift Educate patient to report safety concerns to staff, every shift Monitor environment for contraband/sharps Medication safety: Monitor for expected outcome, potential side effects: every shift, Assess barriers to learning: every shift, Assess readiness for medication education: every shift Family Contact Family involvement: Family/SO is involved Family contact: Patient agrees to contact Discharge/Continuing Care - Education Needs Education Needs: Patient Medication, Patient Diagnosis/Disease Process, Patient Coping Skills, Patient Anger Management skills, Patient Placement options, Patient Community resources, Patient Activities of Daily Living, Patient Uses of Medical Equipment, Patient Health Practices/Safety, Patient Personal Hygiene/ Grooming, Patient Aftercare Safety Plan - Discharge Discharge Criteria: Tolerates medication w/o severe side effects, Free of Suicidal thoughts, Free of agitation, Normal sleep pattern, Ability to care for self <Selma Delgado - Last Filed: 11/29/17 14:26> - Diagnosis (1) MDD (major depressive disorder) Status: Acute Interventions: 11/29/17 14:26 Psychoeducation Psychopharmacology/adjustment of medications as needed/ monitoring possible side effects Evaluate pt on daily basis Compliance with medications and follow up appointments Suicide and homicide risk assessment and prevention Relapse prevention Reduction of symptoms Improve functional status Family involvement As outpatient: cognitive behavioral therapy <Brandi Bolaños - Last Filed: 11/30/17 10:38> Family Contact Family contact: Patient agrees to contact Family contact name: Alejandrina Regalado(sister) [phone] Family contacted how many times per week?: 2 - Outside Agency [facility] Care involvment: Information-sharing Agency contact name: [facility] Agency contact number: [phone] <Sophie Byrd - Last Filed: 11/30/17 11:53>
--- NOTE | 2017-11-29 15:33 | PCM.PSYCH ---
Initial Psychiatric Evaluation - Initial Psychiatric Evaluation Type of Admission: Voluntary Legal Status: Capacity (patient has capacity to sign consent for treatment) Chief Complaint (in patient's own words): "I felt like a burden from her family, everybody was brushing me off" Patient's Reaction to Hospitalization: pt was transferred from the medical site for evaluation and stabilization of depression and possible passive wish to be . History of Present Illness and Precipitating Events: shortly patient is 57 year old [place] male with reported history of depression most likely related to the stroke in 2012, patient initially was admitted on the medical side for evaluation of dizziness and lightheadedness, patient found to be depressed, hopeless, expressed wish to be , patient was evaluated by this typewriters functional tester was offered admission then transferred to the psychiatric inpatient unit uneventfully on 11/28/2017. patient was seen today at the treatment team meeting room, utilize nurse external relations manager for translation, patient was able to express himself as well as understand basic S[place], but communicates better in Frisian. Patient presented to be unhappy, needy, irritable, circumstantial and tangential thought process, difficulties to stay focused, patient has pressured perception of himself as a victim. patient presented with acceptable personal hygiene but not shaved, will chair bound, has residual weakness on the left side of his body. Poor ADLs. Patient reported that his left him about 2 months ago and she was mistreating him in the way that she will not buy anything for him, patient also said that she was neglectful to our team, at the same time patient said that his kids are not willingly helping him and see him as a burden for the family. pt said he was feeling depressed, hopeless, helpless, worthless, patient also reported that he was not able to sleep, had poor appetite, passive wish to be , no intent or plan to kill himself. Patient reported no symptoms of anxiety, denied history of abuse, denied hearing voices, denied seeing things, denied paranoid ideation, patient does not present to be psychotic, but mildly guarded. Patient denied drinking alcohol, denied smoking cigarettes, denied using drugs. Past psychiatric history: In 2012 patient was diagnosed with stroke, "but then I was thinking to end up my life, but I did not act on my thoughts", patient contracted for safety, denied any intent or plan to kill himself during the interview. patient denied history of being admitted to the psychiatric inpatient unit, denied history of suicidal attempts, currently under care of at [facility], pt aid that he is going to adult treatment Center as well. Family history: Patient denied family history of mental illness, denied history of suicidal attempts in the family. Medical history:patient has history of hypertension, hyper cholesterol level, seizures, BPH, kidney stones, history of stroke with residual weakness of the left side. As per nursing staff assessment and collateral information patient could be irritable, demanding, needy as well as unhappy, but no agitation or aggression. patient reported that Elavil was "I think at this too strong for me, I was feeling sleepy at the morning", will continue the same dose, it drowsiness continues, will decrease the dose. Lab Results 11/29/17 06:15: TSH 3rd Generation 4.27 Vital Signs Temp Pulse Resp BP 11/29/17 07:05 97.8 F 68 20 115/82 11/28/17 20:35 20 11/28/17 20:31 97.8 F 99 H 20 113/79 Current Medications: Active Medications Generic Name Dose Route Start Last Admin Trade Name Freq PRN Reason Stop Dose Admin Acetaminophen 650 mg 11/28/17 20:26 Tylenol 325mg Tab PO Q4H PRN Pain, Mild (1-3) Al Hydrox/Mg Hydrox/Simethicone 30 ml 11/28/17 20:26 Maalox Plus 30 Ml PO DAILY PRN Upset Stomach Amitriptyline HCl 10 mg 11/28/17 22:00 11/28/17 21:29 Elavil PO 10 mg HS OZZIE Administration Aspirin 81 mg 11/29/17 08:00 11/29/17 08:28 Ecotrin PO 81 mg DAILY OZZIE Administration Atorvastatin Calcium 10 mg 11/28/17 22:00 11/28/17 21:29 Lipitor PO 10 mg HS OZZIE Administration Baclofen 10 mg 11/29/17 08:00 11/29/17 08:28 Lioresal PO 10 mg TID OZZIE Administration Gabapentin 100 mg 11/28/17 22:00 11/28/17 21:29 Neurontin PO 100 mg HS OZZIE Administration Protocol Levetiracetam 500 mg 11/29/17 08:00 11/29/17 08:28 Keppra PO 500 mg BID OZZIE Administration Lorazepam 0.5 mg 11/28/17 20:26 Ativan PO Q8H PRN Anxiety Protocol Losartan Potassium 100 mg 11/28/17 22:00 11/28/17 21:29 Cozaar PO 100 mg HS OZZIE Administration Magnesium Hydroxide 30 ml 11/28/17 20:26 Milk Of Magnesia PO DAILY PRN Constipation Oxybutynin Chloride 5 mg 11/29/17 08:00 11/29/17 08:28 Ditropan Tab PO 5 mg BID OZZIE Administration Tamsulosin HCl 0.4 mg 11/29/17 08:00 11/29/17 08:28 Flomax PO 0.4 mg DAILY OZZIE Administration Past Psychiatric History - Past Psychiatric History Previous Treatment History: None Prior Professional Help: see HPI Prior Psychiatric Treatment: see HPI At what hospital: see HPI Duration: see HPI Nature of Treatment: see HPI Explanation of prior treatment: see HPI History of Abuse: see HPI History of ETOH/Drug Use: see HPI History of Family Illness: see HPI Pertinent Medical Hx (Current Medical&Sleep Prob, Allergies): Allergies Allergy/AdvReac Type Severity Reaction Status Date / Time No Known Allergies Allergy Verified 11/28/17 23:17 Aspirin [Ecotrin] 81 mg PO DAILY 10/24/17 Atorvastatin [Lipitor] 10 mg PO HS 10/24/17 Baclofen [Lioresal] 10 mg PO TID 10/24/17 Gabapentin [Neurontin] 100 mg PO HS 10/24/17 Levetiracetam [Roweepra] 500 mg PO BID 10/24/17 Losartan [Cozaar] 100 mg PO HS 10/24/17 Oxybutynin Chloride [Oxybutynin Chloride ER] 15 mg PO DAILY 10/24/17 Oxybutynin [Ditropan Tab] 5 mg PO BID 10/24/17 PARoxetine [Paxil] 10 mg PO HS 10/24/17 Ranitidine HCl [Acid Stock Associate] 150 mg PO DAILY 10/24/17 Tamsulosin [Flomax] 0.4 mg PO DAILY 10/24/17 Review of Systems - Review of Systems Systems not reviewed;Unavailable: Acuity of Condition - EENT Eyes: As Per HPI Ears: As Per HPI Nose/Mouth/Throat: As Per HPI - Cardiovascular Cardiovascular: As Per HPI - Respiratory Respiratory: As Per HPI - Gastrointestinal Gastrointestinal: As Per HPI - Genitourinary Genitourinary: As Per HPI - Reproductive: Male Reproductive:Male: As Per HPI - Musculoskeletal Musculoskeletal: As Par HPI - Integumentary Integumentary: As Per HPI - Neurological Neurological: As Per HPI - Psychiatric Psychiatric: As Per HPI - Endocrine Endocrine: As Per HPI - Hematologic/Lymphatic Hematologic: As Per HPI Mental Status Examination - Personal Presentation Personal Presentation: Looks older than stated age - Affect Affect: Flat (and tearful) - Motor Activity Motor Activity: Psychomotor Retardation - Reliability in Providing Information Reliability in Providing Information: Fair - Speech Speech: Other (circumstantial) - Mood Mood: Depressed - Formal Thought Process Formal Thought Process: No Impairment - Obsessions/Compulsions Obsessions: None Compulsions: None - Cognitive Functions Orientation: Person, Place, Situation Sensorium: Alert Attention/Concentration: Easily distracted Abstract Thinking: [place], As evidence by literal perception of proverbs Estimate of Intelligence: Average Judgement: Intact, as evidence by: Insight regarding need for hospitalization - Risk Risk: Diminished functioning - Strength & Assets Inventory Strength & Assets Inventory: Cooperative - Limitations Limitations: Other (pt lives alone, multiple medical issues) DSM 5 DX - DSM 5 DSM 5 Diagnosis: MDD, recurrent, severe, no psychosis r/o adjustment disorder with depressed mood r/o mood disorder due to a GMC (stroke) - Recommended/Plan of Treatment Treatment Recommendations and Plan of Treatment: milieu/structure/supportive therapy Aspirin [Ecotrin] 81 mg PO DAILY Atorvastatin [Lipitor] 10 mg PO HS Baclofen [Lioresal] 10 mg PO TID Gabapentin [Neurontin] 100 mg PO HS Levetiracetam [Roweepra] 500 mg PO BID Losartan [Cozaar] 100 mg PO HS Oxybutynin [Ditropan Tab] 5 mg PO BID PARoxetine [Paxil] d/c amitriptyllin 10mg po hs for depression Ranitidine HCl [Acid Stock Associate] 150 mg PO DAILY Tamsulosin [Flomax] 0.4 mg PO DAILY SW consultation for discharge plan and social issues Med management (specify the name, doses, plan to titrate or wean it off) Family involvement Follow up on labs Will monitor closely Pt was educated about risk/benefits and alternatives of medications, coping strategies (safety plan, suicide prevention), relapse prevention, importance of follow up with psychiatrist and therapist, stay away from drugs/alcohol/smoking Projected ELOS: 7days Prognosis: guarded Discharge Plan and Discharge Criteria: Pt will be not depressed or manic, will be more hopeful, will be not psychotic or anxious, will be not having thoughts of harming self or others, will be tolerating medications well, will not have major side effects, will be able to function, will not pose threat to self or others. - Smoking Cessation Smoking Cessation Initiated: No Reason for not providing: denies smoking
[2017-11-30 07:10] VITALS: BP 114/82; PULSE 81; TEMP 98.1
[2017-11-30 07:33] LABS: MEAN CELL VOLUME 92.5 fl (80.0-105.0); MEAN CORPUSCULAR HGB CONC 34.6 g/dl (31.0-37.0); MEAN PLATELET VOLUME 10.2 fl (7.0-11.0); RBC 4.69 10^6/uL (3.5-6.1); RED CELL DISTRIBUTION WIDTH 12.9 % (11.5-14.5); WHITE BLOOD COUNT 7.6 10^3/ul (4.5-11.0)
--- NOTE | 2017-11-30 07:40 | CON ---
DATE: HISTORY OF PRESENT ILLNESS: I know Miles very well for years; he was just in the hospital site; we transferred over to the psychiatric floor. 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 He had some issues with his family members, very tearful, he has been crying. We convinced him that he needs to have a little more help before he goes home, so we sent him to the , which is the Psych floor for depression. Hopefully, we will get him feeling well. This morning, he does not want to be there. I tried to explain to him, he is going to go home and feel the same way. He told me he [place] He has a history of hypertension, an old stroke with left-sided weakness. He has been depressed. He is more depressed than usual at this time. He has had neuropathy, dizziness, and seizures. He has had kidney stones. He has had falls and he uses a cane. He wants PT. He wants to drink more water. He had some frequency and retention in the urine. FAMILY HISTORY: He had BPH in the family. SOCIAL HISTORY: He is a former smoker. He quit drinking. No alcohol. No drugs. ALLERGIES: NO KNOWN DRUG ALLERGIES. MEDICATIONS: He is on Ecotrin, Lipitor, Lioresal, Neurontin, Cozaar, oxybutynin, Paxil, ranitidine, Flomax, amitriptyline, tamsulosin, Keppra, Lipitor, Ditropan. REVIEW OF SYSTEMS: I saw him in a wheelchair. He is alert, talking Maltese and Frisian. He does not want to be here. He has got no sore throat. He is tearful. No shortness of breath. No palpitations or chest pain. No dyspnea on exertion. No abdominal pain. No nausea, vomiting, constipation, diarrhea. No problems with urinating. No back pain. No apparent rashes or ulcers. Not anymore dizzy. His left arm has no more numbness or focal weakness that he has every other day. He looks the same to me, but he is depressed. No headache, no seizures. He is anxious, a lot depressed, and tearful. PHYSICAL EXAMINATION: VITAL SIGNS: He has a 97.8 temp, 68 pulse, 150/82 blood pressure, 20 respiratory rate. HEENT: His head is atraumatic and normocephalic. Extraocular muscles are intact. Pupils are equally reactive to light and accommodation. Throat is moist. NECK: Supple. No lymphadenopathy appreciated. HEART: Regular rate. LUNGS: Decreased breath sounds, but clear to auscultation bilaterally. ABDOMEN: Soft, nontender. Positive bowel sounds. No guarding. No rebound. No CVA tenderness. EXTREMITIES: No edema. Left side is contracted and he has weakness secondary to the stroke. SKIN: Warm and dry. No apparent ulcers or rashes appreciated. NEUROLOGIC: He is alert and oriented x3, very tearful, he does not want to be here. I explained to him he needs to get treatment for his depression and anxiety before he can go to a home situation. LABORATORY DATA: There were no labs at this time, but a TSH is 4.27. I ordered labs for tomorrow. I hope that he will not AMA and he will get the treatment he needs for his depression. I do believe he needs that. I tried to explain that to him. I will get him Physical Therapy, hopefully get him a cane, and he can drink more water and hopefully he will start to improve. Miles Regalado has got very much worsening depression on top of his old stroke, hypertension, seizures, and depression. Donnie Chaves DO
[2017-11-30 07:52] LABS: ALB/GLOB RATIO 1.2 (1.1-1.8); ALT/SGPT 73 U/L (7-56); AST/SGOT 52 U/L (17-59); BLOOD UREA NITROGEN 16 mg/dL (7-21); CALCIUM 9.3 mg/dL (8.4-10.5); GFR AFRICAN-AMERICAN > 60; GFR NON-AFRICAN AMERICAN > 60
--- NOTE | 2017-11-30 14:54 | PCM.PYCHDC ---
Mental Status Examination - Mental Status Examination Orientation: Person, Place, Situation, Time Memory: Intact Mood: Neutral Affect: Constricted Speech: Soft Attention: WNL Concentration: WNL Association: WNL Fund of Knowledge: WNL Formal Thought Process: No Impairment Description of patient's judgement and insight: Pt has improved insight into mental and medical illness, pt was compliant with medications and unit rules and regulations, pt was going to groups, was calm, cooperative, socially appropriate, no behavioral incidents, no agitation, no aggression. Psychotic Thoughts and Behaviors: Pt denied v/a/t hallucinations, denied paranoid ideations, pt does not appear to be psychotic, and thought process is goal directed. Suicidal Ideation: No Current Homicidal Ideation?: No Plan: pt adamantly denied thoughts of harming self or others denied intent or plan. Discharge Summary - Discharge Note Reason for Hospitalization: pt was transferred from the medical site for evaluation and stabilization of depression and possible passive wish to be . Psychiatric History (includes Medical, Family, Personal Hx): see HPI Laboratory Data: Abnormal Lab Results 11/29/17 11/30/17 11/30/17 06:15 07:00 07:00 WBC 7.6 RBC 4.69 Hgb 15.0 Hct 43.4 MCV 92.5 MCH 32.0 MCHC 34.6 RDW 12.9 Plt Count 223 MPV 10.2 Sodium 140 Potassium 4.8 Chloride 103 Carbon Dioxide 28 Anion Gap 15 BUN 16 Creatinine 1.0 Est GFR ( Amer) > 60 Est GFR (Non-Af Amer) > 60 Random Glucose 92 Calcium 9.3 Total Bilirubin 0.5 AST 52 ALT 73 H Alkaline Phosphatase 96 Total Protein 7.3 Albumin 4.0 Globulin 3.3 Albumin/Globulin Ratio 1.2 RPR Nonreactive 11/30/17 07:00 11/30/17 07:00 Lab Results 11/30/17 07:00: Sodium 140, Potassium 4.8, Chloride 103, Carbon Dioxide 28, Anion Gap 15, BUN 16, Creatinine 1.0, Est GFR ( Amer) > 60, Est GFR (Non- Af Amer) > 60, Random Glucose 92, Calcium 9.3, Total Bilirubin 0.5, AST 52, ALT 73 H, Alkaline Phosphatase 96, Total Protein 7.3, Albumin 4.0, Globulin 3.3, Albumin/Globulin Ratio 1.2 11/30/17 07:00: WBC 7.6, RBC 4.69, Hgb 15.0, Hct 43.4, MCV 92.5, MCH 32.0, MCHC 34.6, RDW 12.9, Plt Count 223, MPV 10.2 11/29/17 06:15: RPR Nonreactive 11/29/17 06:15: TSH 3rd Generation 4.27 Vital Signs Temp Pulse Resp BP 11/30/17 07:08 98.1 F 81 20 114/82 11/29/17 16:18 76 120/83 11/29/17 07:05 97.8 F 68 20 115/82 11/28/17 20:35 20 11/28/17 20:31 97.8 F 99 H 20 113/79 Consultations:: List each consultation separately and include: 1. Reason for request. 2. Findings. 3. Follow-up Consultations: pt was seen by please see notes for more detailed information Summary of Hospital Course include:: 1. Description of specific treatment plan utilized for patients during their course of treatmen. 2. Summarize the time- course for resolution of acute symptoms and/or regressed behaviors. 3. Describe issues identified and worked on during hospitalization. 4. Describe medication utilized. 5. Describe medical problems identified and treated. 6. Reassessment of suicide risk Summary of Hospital Course: shortly patient is 57 year old Ecd[place] male with reported history of depression most likely related to the stroke in 2012, patient initially was admitted on the medical side for evaluation of dizziness and lightheadedness, patient found to be depressed, hopeless, expressed wish to be , patient was evaluated by this sign writer hand was offered admission then transferred to the psychiatric inpatient unit uneventfully on 11/28/2017. during the initial evaluation pt presented to be unhappy, needy, irritable, circumstantial and tangential thought process, difficulties to stay focused, patient has pressured perception of himself as a victim. patient presented with acceptable personal hygiene but not shaved, will chair bound, has residual weakness on the left side of his body. Poor ADLs. Patient reported that his left him about 2 months ago and she was mistreating him in the way that she will not buy anything for him, patient also said that she was neglectful to our team, at the same time patient said that his kids are not willingly helping him and see him as a burden for the family. pt said he was feeling depressed, hopeless, helpless, worthless, patient also reported that he was not able to sleep, had poor appetite, passive wish to be , no intent or plan to kill himself. Patient reported no symptoms of anxiety, denied history of abuse, denied hearing voices, denied seeing things, denied paranoid ideation, patient does not present to be psychotic, but mildly guarded. Patient denied drinking alcohol, denied smoking cigarettes, denied using drugs. Past psychiatric history: In 2012 patient was diagnosed with stroke, "but then I was thinking to end up my life, but I did not act on my thoughts", patient contracted for safety, denied any intent or plan to kill himself during the interview. patient denied history of being admitted to the psychiatric inpatient unit, denied history of suicidal attempts, currently under care of at [facility], pt aid that he is going to adult treatment Center as well. Family history: Patient denied family history of mental illness, denied history of suicidal attempts in the family. Medical history:patient has history of hypertension, hyper cholesterol level, seizures, BPH, kidney stones, history of stroke with residual weakness of the left side. As per nursing staff assessment and collateral information patient could be irritable, demanding, needy as well as unhappy, but no agitation or aggression. patient reported that Elavil was "I think at this too strong for me, I was feeling sleepy at the morning", will continue the same dose, it drowsiness continues, will decrease the dose. Lab Results 11/29/17 06:15: TSH 3rd Generation 4.27 Vital Signs Temp Pulse Resp BP 11/29/17 07:05 97.8 F 68 20 115/82 11/28/17 20:35 20 11/28/17 20:31 97.8 F 99 H 20 113/79 pt requested to be d/c 11/30/17 pt refused to sign 48hr notice pt requested to talk to his plant pathology teacher, mao and this sign writer hand assisted pt with the phone call pt then submitted 48 hr notice pt said he wants to be with his family over this weekend pt reported that he sleeps better at night pt denied any thoughts of harming self or others as per staff pt is compliant with meds no behavioral issues. pt contacted his kids, they will pick pt up pt said that he has no meds at home and all meds given to him by his day program. this sign writer hand provided prescription for his medical problems for 1week paxil was d/c Elavil 10mg po hs for depression #two weeks supply and one refill, pt tolerated elavil well, no side effects observed or reported pt might benefit from further stabilization, but pt refused to stay in the hospital, at the same time pt does not meet a criteria for screening At the time of the discharge pt denied been depressed, denied thoughts of harming self or others, denied psychotic symptoms, and pt does not appeared to be psychotic, denied been anxious, pt is not in imminent danger to self or others, will be following up with , information about follow up appointment, time and address provided to the pt, it is patient responsibility to follow up with outpatient clinic, PMD as well as specialists (see SW note for more detailed information). In case pt will need to obtain results of studies pending at discharge pt was provided with contact information of Psychiatric Inpatient unit [phone] as well as Medical Record Department [phone]. pt denied any drugs or using alcohol, denied smoking pt was provided with prescriptions for all of medications (please see medication reconciliation form) Pt was educated about safety plan in case of worsening of symptoms or in case of suicidal or homicidal ideation call 911 or go to the nearest ER, also was educated to take meds as prescribed and stay away from drugs, pt verbalized understanding. - Diagnosis (1) MDD (major depressive disorder) Current Visit: Yes Status: Acute Priority: Medium - Final Diagnosis (DSM 5) Condition upon Discharge: STABLE Disposition: AGAINST MEDICAL ADVICE Follow-up Treatment Plan: At the time of the discharge pt denied been depressed, denied thoughts of harming self or others, denied psychotic symptoms, and pt does not appeared to be psychotic, denied been anxious, pt is not in imminent danger to self or others, will be following up with , information about follow up appointment, time and address provided to the pt, it is patient responsibility to follow up with outpatient clinic, PMD as well as specialists (see SW note for more detailed information). In case pt will need to obtain results of studies pending at discharge pt was provided with contact information of Psychiatric Inpatient unit [phone] as well as Medical Record Department [phone]. pt denied any drugs or using alcohol, denied smoking pt was provided with prescriptions for all of medications (please see medication reconciliation form) Pt was educated about safety plan in case of worsening of symptoms or in case of suicidal or homicidal ideation call 911 or go to the nearest ER, also was educated to take meds as prescribed and stay away from drugs, pt verbalized understanding. Prescriptions/Medication Reconciliation: Amitriptyline [Elavil] 10 mg PO HS #14 tab Aspirin [Ecotrin] 81 mg PO DAILY #7 tabec Atorvastatin [Lipitor] 10 mg PO HS #7 tab Baclofen [Lioresal] 10 mg PO TID #21 tab Gabapentin [Neurontin] 100 mg PO HS #7 cap levETIRAcetam [Keppra] 500 mg PO BID #21 tab Losartan [Cozaar] 100 mg PO HS #7 tab Oxybutynin Chloride [Oxybutynin Chloride ER] 15 mg PO DAILY #1 tab.er.24 Ranitidine HCl [Acid Fondant Puff Maker] 150 mg PO DAILY #7 tablet Tamsulosin [Flomax] 0.4 mg PO DAILY #7 cap - Smoking Cessation Smoking Cessation Medication prescribed: No Reason for not providing: denies smoking
--- NOTE | 2017-11-30 15:46 | PN ---
DATE: 11/30/2017 SUBJECTIVE: I saw him in the Psychiatric floor, sleeping in bed, easily arousable. He is very upset being in the Psychiatric floor. He wants to go home, but I do think he is starting to feel better with the medications from Psychiatry. He is on Ativan, Cozaar, Ditropan, Ecotrin, Elavil, Flomax, Keppra, Lipitor, MiraLax, milk of magnesia, Neurontin, and Tylenol. I tried to convince him that it is better to be here until he felt better, then he could go home. PHYSICAL EXAMINATION: VITAL SIGNS: He has 98.1 temp, 81 pulse, 114/82 blood pressure, 20 respiratory rate. HEENT: Head is atraumatic and normocephalic. HEART: Regular rate. LUNGS: Decreased breath sounds, but clear. ABDOMEN: Soft. EXTREMITIES: No edema. Left-sided weakness from an old stroke. LABORATORY DATA: He has a 7.6 white count, 15 hemoglobin, 43.4 hematocrit, 223 platelets. Sodium 140, potassium 4.8, BUN 60, creatinine 1, GFR is greater than 60, sugar is 92, calcium is 9.3, total bili is 0.5, AST is 62, ALT is 73, alkaline phosphatase is 96, total protein 7.3. TSH is 4.27. Serology of his RPR nonreactive. Overall prognosis is very good. He is being seen by Psychiatry. We will continue with treatment and care as per Psychiatry. I encouraged him to stay, eat well, participate, take his medications and hopefully, continue to improve; went over his labs with him and I will see him tomorrow as per Psychiatry. Donnie Chaves DO MTDD
== END 2017-11-30 15:14 | disposition left against medical advice (07) | DRG 430 ==
LOC: PSYC 18:53
PROVIDERS: ADMIT Psychiatry & Neurology Psychiatry; ATTEND Psychiatry & Neurology Psychiatry
DX: F33.2 Major depressive disorder, recurrent severe without psychotic features (principal); R56.9 Unspecified convulsions; I10 Essential (primary) hypertension; N40.0 Benign prostatic hyperplasia without lower urinary tract symptoms; I69.354 Hemiplegia and hemiparesis following cerebral infarction affecting left non-dominant side; Z87.442 Personal history of urinary calculi; Z87.891 Personal history of nicotine dependence